=== PATIENT | male | born 1995 | race Caucasian/White ===

== ENCOUNTER 2022-01-31 12:38 | Emergency (ER) | payer MEDICAID, SELFPAY ==
[2022-01-31 12:47] VITALS: BP 138/83; PULSE 100; RESP 18; TEMP 36.1; O2SAT 98; BMI 34.4
--- NOTE | 2022-01-31 13:43 | ED_ITS ---
HPI - Skin/Abscess/Foreign Bdy General Chief complaint: Skin/Abscess/Foreign Body Stated complaint: infection on abd Time Seen by Provider: 01/31/22 13:29 Source: patient Mode of arrival: ambulatory Limitations: no limitations History of Present Illness HPI narrative: 26 yo male here with redness/swelling on the skin of the upper abdomen x several days. No fevers, chills. Related Data Previous Rx's Medication Instructions Recorded doxycycline monohydrate 100 mg 100 mg PO BID #20 cap 01/31/22 capsule Allergies Allergy/AdvReac Type Severity Reaction Status Date / Time No Known Allergies Allergy Unverified 07/14/20 16:40 [No Known Allergies*] Review of Systems Review of Systems: Yes all other systems are reviewed and are negative Constitutional: Constitutional: Reports no additional constitutional complaints, Denies body ache(s), Denies chills, Denies fever(s), Denies headache(s) and Denies weakness Eyes: Eyes: Reports no additional eye complaints and Denies change in vision ENT: Reports system reviewed and no additional complaints, except as documented, Denies dizziness, Denies headache(s), Denies nasal congestion, Denies nasal discharge and Denies neck pain Cardiovascular: Cardiovascular: Reports no additional cardiovascular complaints, Denies chest pain, Denies leg edema and Denies dyspnea Respiratory: Respiratory: Reports no additional respiratory complaints, Denies cough and Denies dyspnea Gastrointestinal: Gastrointestinal: Reports no additional gastrointestinal complaints, Denies abdominal pain, Denies diarrhea, Denies nausea and Denies vomiting Genitourinary: Genitourinary: Denies urinary incontinence Musculoskeletal: Musculoskeletal: Reports no additional musculoskeletal complaints, Denies back pain, Denies arthralgias, Denies joint swelling, Denies neck pain, Denies numbness and Denies tingling Integumentary/Breasts: Skin/Breast: Reports system reviewed and no additional complaints, except as docu, Reports swelling, Reports erythema and Denies rash Neurologic: Reports system reviewed and no additional complaints, except as documented, Denies Abnormal speech present, Denies dizziness, Denies h eadache(s), Denies numbness, Denies tingling and Denies weakness PMFSH Past Medical History Attestation statement: The following information was validated with the patient. Source: old records reviewed and nursing notes reviewed Medical History No known health problems Physical Exam Vital Signs: Vital Signs: Last Vital Signs Temp 97.0 F 01/31/22 12:47 Pulse 100 01/31/22 12:47 Resp 18 01/31/22 12:47 BP 138/83 01/31/22 12:47 Pulse Ox 98 01/31/22 12:47 BMI result Body Mass Index 34.4 Const: General: cooperative, healthy appearing, comfortable and no acute distress Orientation/consciousness: patient oriented x3 Limitations: no limitations HEENT: Head: Yes normal to inspection Ears: hearing grossly normal bilaterally General nose exam: Normal external nose present Face and sinus: Yes normal facial exam Mouth: Normal oral and palatal mucosa present Throat: Yes posterior oropharynx normal Eyes: General: appearance normal, both eyes and all related structures Pupils: Equal, round and reactive pupils present Neck: Neck: Yes normal visual inspection Chest: Chest palpation & inspection: normal inspection of the chest Resp: Effort & Inspection: normal respiratory effort Auscultation: clear to auscultation bilaterally Cardio: Rate: regular rate Rhythm: regular rhythm Peripheral pulses: Peripheral pulses 2+ throughout GI: Inspection: Yes normal to inspection Palpation (GI): Soft to palpation and nontender Auscultation: normal bowel sounds Abdomen image: 1. There is an abscess with drainage with surrounding erythema Back/Spine/Pelvis: Thoracic/Lumbar Spine: thoracic and lumbar spine normal to inspection Skin: General skin exam: no rashes or lesions noted Neuro: General: patient oriented x3, no focal motor deficits and normal sensation to monofilament Cranial nerves: Yes Equal, round and reactive pupils present Cognition (Neuro): normal cognition Speech: No Abnormal speech present Gait exam (Neuro): Normal gait present Motor exam (neuro): 5/5 motor strength present throughout Extrem: General: Yes normal to inspection Course Course Course Narrative: 26-year-old male here with abscess to the abdominal wall. See procedure note. There is a local area of erythema and tenderness with warmth. Patient will be started on oral antibiotics. Reviewed worrisome signs and symptoms of when to return to the emergency department. Comfortable discharge home. MDM - Skin/Abscess/Foreign Bdy Differential Diagnosis Differential diagnosis: Likely abscess of skin or subcutaneous tissue Medical Records Attestation: I reviewed the patient's medical records. Lab Data Attestation: I reviewed the patient's lab results. Procedures Abscess I/D Site: abdomen Local Anesthetic: lidocaine 2% Amount of anesthesia used (mL): 3 Technique: incised with blade Sent for culture/gram staining?: No Irrigation: No Packing used?: iodoform Discharge Plan Discharge Clinical Impression: Abscess of skin or subcutaneous tissue Patient Disposition: Home, Self-Care Instructions: Abscess (ED) Additional Instructions: Return in 48 hours for packing removal Take Motrin or Tylenol for pain as needed Prescriptions: New doxycycline monohydrate 100 mg capsule 100 mg PO BID Qty: 20 0RF Referrals: Physician,None [Primary Care Provider] -
[2022-01-31] MEDS: Lidocaine HCl 2 % MPF 5 ML VIAL SUBCUT (14:01)
== END 2022-01-31 14:30 | disposition home or self-care (01) ==
LOC: HO.ED 14:13
PROVIDERS: Emergency Provider Emergency Medicine Emergency Medical Services
DX: L02.211 Cutaneous abscess of abdominal wall (principal)
CPT/HCPCS: 10060; 99282; 99284

== ENCOUNTER 2022-02-03 12:11 | Emergency (ER) | payer MEDICAID, SELFPAY ==
[2022-02-03 12:18] VITALS: BP 127/81; PULSE 85; RESP 16; TEMP 37.2; O2SAT 100; BMI 36.6
--- NOTE | 2022-02-03 12:23 | ED_ITS ---
HPI - General Adult General Chief complaint: Wound/Laceration Stated complaint: Remove packing from abscess Time Seen by Provider: 02/03/22 12:23 Source: patient Mode of arrival: ambulatory Limitations: no limitations History of Present Illness HPI narrative: Patient is a 26 year old male presenting to the emergency department today for packing removal. Patient states that a few days ago, he had an abscess opened here and had packing placed and was told to come back and have the packing removed. Patient states that he as prescribed antibiotics but he hasn't started taking them yet. Patient denies any dizziness, lightheadedness, abdominal pain, nausea, vomiting, fever, chills, blurry vision, double vision, loss of vision, chest pain, difficulty breathing, shortness of breath, back pain, night sweats, pain with urination, increased urinary frequency, increased urinary urgency, blood in his urine or stool, syncope or a near syncopal episode, recent trauma or falls, bowel incontinence, bladder incontinence, bowel retention, bladder retention, or any other complaints at this time. Location: abdomen Radiation: non-radiation Relieving factors: none Exacerbating factors: none Associated symptoms: denies other symptoms Treatments prior to arrival: none Related Data Previous Rx's Medication Instructions Recorded doxycycline monohydrate 100 mg 100 mg PO BID #20 cap 01/31/22 capsule Allergies Allergy/AdvReac Type Severity Reaction Status Date / Time No Known Allergies Allergy Verified 02/03/22 12:20 [No Known Allergies*] Review of Systems Constitutional: Constitutional: Reports no additional constitutional complaints, Denies chills, Denies fever(s) and Denies night sweats Eyes: Eyes: Reports no additional eye complaints, Denies blurry vision, Denies change in vision, Denies diplopia, Denies eye discharge, Denies loss of vision and Denies eye pain ENT: Denies dizziness Cardiovascular: Cardiovascular: Reports no additional cardiovascular complaints, Denies chest pain, Denies lightheadedness, Denies Loss of Consciousness and Denies dyspnea Respiratory: Respiratory: Reports no additional respiratory complaints and Denies dyspnea Gastrointestinal: Gastrointestinal: Reports no additional gastrointestinal complaints, Denies abdominal pain, Denies melena, Denies hematochezia, Denies change in bowel habits and Denies change in stool character Comments: packing placed superior to the belly button Genitourinary: Genitourinary: Reports no additional male genitourinary complai nts, Denies hematuria, Denies oliguria, Denies difficulty urinating, Denies dysuria, Denies urinary frequency, Denies urinary hesitancy, Denies urinary incontinence and Denies urinary urgency Musculoskeletal: Musculoskeletal: Reports no additional musculoskeletal complaints, Denies numbness and Denies tingling Neurologic: Denies dizziness, Denies loss of vision, Denies numbness and Denies tingling Psychiatric: Psychiatric: Reports no additional psychiatric complaints Endocrine: Endocrine: Reports no additional endocrine complaints Hematologic/Lymphatic: Hematologic/Lymphatic: Reports no additional hematologic/lymphatic complaints Allergic/Immunologic: Allergic/Immunologic: Reports no additional allergic/immunologic complaints PMFSH Past Medical History Attestation statement: The following information was validated with the patient. Source: old records reviewed Medical History No known health problems Social History Social History Advance Directives: No Advance Directives Information Provided: No Physical Exam ED Vital Signs: Vital Signs - 24 hr 02/03/22 12:18 Temperature 98.9 F Pulse Rate 85 Respiratory Rate 16 Blood Pressure 127/81 Pulse Oximetry 100 BMI result Body Mass Index 36.6 Const General: cooperative, no acute distress, alert and awake Nutritional Appearance: well nourished Orientation/consciousness: patient oriented x3 Limitations: no limitations HENMT Head: Yes normal to inspection and Yes atraumatic Ears: hearing grossly normal bilaterally and external ears normal General nose exam: Normal external nose present, no nasal discharge noted and no epistaxis Face and sinus: Yes normal facial exam, No abrasion and No laceration Mouth: Normal oral and palatal mucosa present, no drooling and no muffled voice Eyes General: appearance normal, both eyes and all related structures Periorbital: periorbital findings normal Eyelids: Yes eyelids normal Conjunctivae: conjunctivae normal Pupils: Equal, round and reactive pupils present EOM: EOMs intact bilaterally Neck Neck: Yes normal visual inspection, Yes full ROM and Yes no lymphadenopathy Chest Chest palpation & inspection: normal inspection of the chest Resp Effort & Inspection: normal respiratory effort and able to speak in complete sentences Auscultation: clear to auscultation bilaterally Cardio Rate: regular rate Rhythm: regular rhythm GI Inspection: Yes normal to inspection Skin Other: packing placed in a small open wound just superior to the umbilicus Neuro General: patient oriented x3 and moves all extremities Cranial nerves: Yes Equal, round and reactive pupils present Cognition (Neuro): normal cognition Motor exam (neuro): 5/5 motor strength present throughout Sensory Exam: Normal double simultaneous stimulation for sensation Coordination: [id number]-[id number]-[id number] test normal Extrem General: Yes normal to inspection, Yes full ROM and Yes capillary refill normal Psych Appearance: grossly normal Mental Status: mental status grossly normal Affect: normal affect Attitude: cooperative Thought process: Normal thought process present Thought content: Normal thought content present Insight: Good insight present (Psych) Procedures Procedure Narrative Procedure Narrative: Packing removed from incised area just superior of the umbilicus. Removal went without incident. Medical Decision Making MDM Narrative Medical decision making narrative: Patient is a 26 year old male presenting to the emergency department today for packing removal. Patient's physical exam showed a small open wound superior of the umbilicus with packing present. I removed the packing, without incident. Patient's wound was redressed. I explained my physical exam findings to the patient. I answered all questions asked by the patient. I stressed the importance of the patient taking his medication and his antibiotic as prescribed. I stressed the importance of the patient following up with his primary care provider. I stressed the importance of the patient returning to the emergency department immediately if he were to develop any dizziness, shortness of breath, difficulty breathing, chest pain, blurry vision, loss of vision, nausea, vomiting, abdominal pain, fever, chills, back pain, or any other complaints. Patient verbalized agreement and understanding with this treatment p bijal and discharge. Differential Diagnosis Differential Diagnosis: packing removal Medical Records Medical records reviewed: Yes I reviewed the patient's medical records. Discharge Plan Discharge Clinical Impression: Abscess Patient Disposition: Home, Self-Care Instructions: Abscess (ED), Abscess Incision and Drainage (DC) Additional Instructions: Take your antibiotics as prescribed. Perform daily wound checks and daily dressing changes. Follow up with your primary care provider. Return to the emergency department immediately if your symptoms worsen or if you develop any dizziness, shortness of breath, difficulty breathing, chest pain, blurry vision, loss of vision, nausea, vomiting, abdominal pain, fever, chills, back pain, or any other complaints. Prescriptions: No Action doxycycline monohydrate 100 mg capsule 100 mg PO BID Qty: 20 0RF Referrals: Physician,None [Primary Care Provider] - (Follow up with your PCP. ) Interventions: ED Discharge Assessment Last Done: 02/03/22 12:45 Discharge Date/Time: 02/03/22 12:46 Print Language: Azeri
== END 2022-02-03 12:46 | disposition home or self-care (01) ==
PROVIDERS: Emergency Provider Emergency Medicine
DX: Z48.00 Encounter for change or removal of nonsurgical wound dressing (principal); L02.211 Cutaneous abscess of abdominal wall
CPT/HCPCS: 99282; 99283

== ENCOUNTER 2022-11-28 11:19 | Emergency (ER) | payer MEDICAID, SELFPAY ==
--- NOTE | ~2022-11-28 | XR_ITS ---
EXAMINATION: RIGHT ANKLE, RIGHT FOOT CLINICAL INFORMATION: Rolled ankle with foot and ankle pain COMPARISON: None TECHNIQUE: 2 views right ankle, 3 views right foot FINDINGS: There is minimal soft tissue swelling. No bone or joint abnormality is seen. No fractures are detected. XR/XR ankle RT 2V IMPRESSION: No evidence of an acute osseous injury.
--- NOTE | ~2022-11-28 | XR_ITS ---
EXAMINATION: RIGHT ANKLE, RIGHT FOOT CLINICAL INFORMATION: Rolled ankle with foot and ankle pain COMPARISON: None TECHNIQUE: 2 views right ankle, 3 views right foot FINDINGS: There is minimal soft tissue swelling. No bone or joint abnormality is seen. No fractures are detected. XR/XR foot RT 2V IMPRESSION: No evidence of an acute osseous injury.
--- NOTE | 2022-11-28 11:22 | ED_ITS ---
HPI - Extremity Injury (Lower) General Chief Complaint: Fall <Patt Pereira NP - Last Filed: 11/28/22 11:24> Stated Complaint: R ankle sprain <Patt Pereira NP - Last Filed: 11/28/22 11:24> Time Seen by Provider: 11/28/22 11:41 <Patt Pereira NP - Last Filed: 11/28/22 11:24> Source: patient <MINOR Vu - Last Filed: 11/28/22 14:18> Mode of arrival: ambulatory <MINOR Vu - Last Filed: 11/28/22 14:18> Limitations: no limitations <MINOR Vu Last Filed: 11/28/22 14:18> History of Present Illness HPI Narrative: 27 year old male presents to the ED using crutches. The patient reports yesterday while walking to the kitchen twisted his right ankle. He reports swelling and pain with ambulation, palpation, and pressure. Denies head trauma or any other trauma. No numbness, tingling. No bleeding. He reports no other symptoms. <MINOR Vu - Last Filed: 11/28/22 14:18> MD complaint: ankle injury (right side ) <MINOR Vu Last Filed: 11/28/22 14:18> Onset (ago): hour(s) <MINOR Vu - Last Filed: 11/28/22 14:18> Injury: Right: foot (Ankle/Foot pain right side after fall ) <MINOR Vu Last Filed: 11/28/22 14:18> Type of Injury: eversion <MINOR Vu - Last Filed: 11/28/22 14:18> Place: home (walking to the kitchen ) <MINOR Vu Last Filed: 11/28/22 14:18> Relieving factors: immobilization <MINOR Vu Last Filed: 11/28/22 14:18> Exacerbating factors: weight bearing and movement <MINOR Vu Last Filed: 11/28/22 14:18> Context: fall and walking <MINOR Vu Last Filed: 11/28/22 14:18> Associated symptoms: swelling <MINOR Vu - Last Filed: 11/28/22 14:18> Related Data Home Medications: Previous Rx's Medication Instructions Recorded doxycycline monohydrate 100 mg 100 mg PO BID #20 caps 01/31/22 capsule ibuprofen 800 mg tablet 800 mg PO Q8H PRN pain #14 tabs 11/28/22 <Patt Pereira NP - Last Filed: 11/28/22 11:24> Allergies/Adverse Reactions: Allergies Allergy/AdvReac Type Severity Reaction Status Date / Time No Known Allergies Allergy Verified 02/03/22 12:20 [No Known Allergies*] <Patt Pereira NP - Last Filed: 11/28/22 11:24> Review of Systems Review of Systems: Constitutional : No Weight loss, No Fever, No Chills, No Night Sweats, No Fatigue, No Malaise ENT/Mouth : No Hearing loss, No Ear Pain, No Nasal Congestion, No Sinus Pain, No Hoarseness, No sore throat, No Rhinorrhea, No Swallowing Difficulty Eyes: No Eye Pain, No Swelling, No Redness, No Foreign Body, No Discharge, No Vision Changes Cardiovascular : No Chest Pain, No SOB, No Dyspnea on Exertion, No Orthopnea, No Edema, No Palpitations Respiratory : No Cough, No Sputum, No Wheezing, No Smoke Exposure, No Dyspnea Gastrointestinal : No Nausea, No Vomiting, No Diarrhea, No Constipation, No abdominal Pain, No Hematochezia, No Melena Genitourinary : no irregular bleeding, No Dysuria, No Urinary Frequency, No He maturia, No Urinary Incontinence, No Urgency, No Flank Pain, No Urinary Flow Changes, No Hesitancy Musculoskeletal : + r ankle joint pain, Swelling Skin : Right ankle ecchymosis,No Skin Lesions, No rash Neuro : No Weakness, No Numbness, No Paresthesias, No Loss of Consciousness, No Dizziness, No Headache Psych : No Anxiety/Panic, No Depression, No SI/HI/AH/VH, No Social Issues, Heme/Lymph: No Bruising, No Bleeding,No Lymphadenopathy Endocrine : No Polyuria, No Polydipsia, No Temperature Intolerance <MINOR Vu Last Filed: 11/28/22 14:18> Yes all other systems are reviewed and are negative <MINOR Vu - Last Filed: 11/28/22 14:18> [facility] Past Medical History Attestation statement: The following information was validated with the patient. <MINOR Vu - Last Filed: 11/28/22 14:18> Source: old records reviewed, obtained from family and nursing notes reviewed <MINOR Vu - Last Filed: 11/28/22 14:18> Medical History: Medical History No known health problems <Patt Pereira NP - Last Filed: 11/28/22 11:24> Social History Social History: Social History Advance Directives: No Advance Directives Information Provided: No <Patt Pereira NP - Last Filed: 11/28/22 11:24> Physical Exam Vital Signs: Vital Signs: Last Vital Signs Temp 97.9 F 11/28/22 11:24 Pulse 92 11/28/22 11:24 Resp 20 11/28/22 11:24 BP 128/82 11/28/22 11:24 Pulse Ox 98 11/28/22 11:24 O2 Del Method 11/28/22 11:24 BMI result Body Mass Index 37.8 <Patt Pereira NP - Last Filed: 11/28/22 11:24> Vital Signs: Last Vital Signs Temp 97.9 F 11/28/22 11:24 Pulse 92 11/28/22 11:24 Resp 20 11/28/22 11:24 BP 128/82 11/28/22 11:24 Pulse Ox 98 11/28/22 11:24 O2 Del Method 11/28/22 11:24 BMI result Body Mass Index 37.8 Vital signs reviewed. Blood pressure normal. Pulse normal. Respiration normal. Oxygen normal. Temperature normal. <MINOR Vu - Last Filed: 11/28/22 14:18> Appearance: Alert. Oriented X3. No acute distress. Head: Normal external exam. Normocephalic. Atraumatic. Eyes: PERRLA. EOMI. Conjunctiva and sclera normal. Eyelids normal. ENT: EAC normal. TM's Normal. Pharynx normal. Uvula midline. Moist mucous membranes. No lesions/ulcerations or masses noted on the tongue. Normal voice. No trismus noted. No drooling noted. No muffled voice noted. Neck: Normal inspection. Neck supple. FROM. No adenopathy. Thyroid Normal. No meningeal signs. CVS: Normal heart rate and rhythm. Heart sound normal. Pulses normal throughout. No murmurs/rales/gallops. Respiratory: No respiratory distress. Painless inspiration. Breath sounds normal. No wheezes/rales/rhonchi noted. Chest nontender. No accessory muscle usage noted or decreased air movement noted. Abdomen: Soft and nontender. Back: Full range of motion noted. Nontender. Skin: Ecchymosis and swelling of the lateral aspect of right ankle. Skin warm and dry. Normal skin color. Normal skin turgor. No rashes/lesions/lacerations noted. Extremities: Limited ROM plantar flexion/dorsiflexion right foot due to pain. Difficult bearing weight on right foot due to pain. No obvious ligamentous or tendon injury noted. Achilles tendon is intact. Negative Leahy test. Otherwise all Extremities exhibit normal range of motion and nontender. Neuro: Oriented X 3. No motor deficit. No sensory deficit. Reflexes normal. Normal steady gait. No focal neuro deficits noted. CN's II-XII intact bilaterally? Vascular: + radial pulses. Normal distal pedal pulses. Normal cap refill. No cyanosis noted to upper extremity nails and toenails <MINOR Vu - Last Filed: 11/28/22 14:18> Course Course Course Narrative: This is rapid medical exam. Deferred additional HPI, ROS, PE to primary provider. 27 yo male here with complaints of right ankle/foot pain s/p twisting injury yesterday. Will check x-rays. VSS. <Patt Pereira NP - Last Filed: 11/28/22 11:24> Reevaluation(s) Reevaluation #1: 27 year old with no prior medical history and no allergies presents to the ED using crutches complaining of right foot ankle sprain. Ankle pain, swelling and ecchymosis around the malleolus. Difficultly bearing weight on right foot. No obvious tendon or muscle rupture. X-ray results show minimal soft tissue swelling. No bone or joint abnormality detected, no evidence of fractures, or acute osseous injury. Recommending joint stabilization with air cast, NSAIDs, rest, elevation and ice. Follow up in 1 week with orthopedics. <MINOR Vu - Last Filed: 11/28/22 14:18> Time: 11:49 <MINOR Vu - Last Filed: 11/28/22 14:18> Medical Decision Making Independent Interpretation I performed an independent interpretation of an: Plain X-Ray <MINOR Vu - Last Filed: 11/28/22 14:18> Interpretation: EXAMINATION: RIGHT ANKLE, RIGHT FOOT CLINICAL INFORMATION: Rolled ankle with foot and ankle pain? COMPARISON: None? TECHNIQUE: 2 views right ankle, 3 views right foot? FINDINGS: There is minimal soft tissue swelling. No bone or joint abnormality is seen. No fractures are detected.? XR/XR foot RT 2V IMPRESSION: No evidence of an acute osseous injury. <MINOR Vu - Last Filed: 11/28/22 14:18> Radiology Impression Discussion of test interpretation with radiology: I have reviewed the radiologist's reading. <MINOR Vu - Last Filed: 11/28/22 14:18> Procedures Orthopedic Splinting/Casting Injury #1: Side: right <MINOR Vu - Last Filed: 11/28/22 14:18> Lower Extremity Injury Location: ankle and foot <MINOR Vu - Last Filed: 11/28/22 14:18> Lower Extremity Immobilizer: AirCast <MINOR Vu - Last Filed: 11/28/22 14:18> Discharge Plan Discharge Clinical Impression: Right ankle sprain <Patt Pereira NP - Last Filed: 11/28/22 11:24> Patient Disposition: Home, Self-Care <Patt Pereira NP - Last Filed: 11/28/22 11:24> Instructions: Ankle Sprain (ED) <Patt Pereira NP - Last Filed: 11/28/22 11:24> Prescriptions: New ibuprofen 800 mg tablet 800 mg PO Q8H PRN (Reason: pain) Qty: 14 0RF No Action doxycycline monohydrate 100 mg capsule 100 mg PO BID Qty: 20 0RF <Patt Pereira NP - Last Filed: 11/28/22 11:24> Referrals: [facility] [place] [facility] [Provider Group] (if symptoms persist for longer than a few weeks follow-up with orthopedics) <Patt Pereira NP - Last Filed: 11/28/22 11:24> Stand Alone Forms: Work/School Release <Patt Pereira NP - Last Filed: 11/28/22 11:24> Discharge Date/Time: 11/28/22 12:47 <Patt Pereira NP - Last Filed: 11/28/22 11:24>
[2022-11-28 11:24] VITALS: BP 128/82; PULSE 92; RESP 20; TEMP 36.6; O2SAT 98; BMI 37.8
--- NOTE | 2022-11-28 12:45 | PC.NURSE ---
air cast placed on right ankle, pt tolerated well with ibu 800mg on board. pt able to demonstrate proper use of crutches, alert, oriented, NAD at dc
== END 2022-11-28 12:47 | disposition home or self-care (01) ==
PROVIDERS: Emergency Provider Student in an Organized Health Care Education/Training Program
DX: S93.401A Sprain of unspecified ligament of right ankle, initial encounter (principal); M25.571 Pain in right ankle and joints of right foot; X50.1XXA Overexertion from prolonged static or awkward postures, initial encounter; Y93.9 Activity, unspecified; Y92.9 Unspecified place or not applicable; Y99.9 Unspecified external cause status
CPT/HCPCS: 29515; 73600; 73620; 99283

== ENCOUNTER 2023-01-25 17:20 | Emergency (ER) | payer MEDICAID, SELFPAY ==
--- NOTE | ~2023-01-25 | XR_ITS ---
EXAMINATION: XR ANKLE, RIGHT CLINICAL INFORMATION: Right ankle injury COMPARISON: 11/28/2022 TECHNIQUE: AP, lateral, and mortise views of the right ankle. FINDINGS: The bones and soft tissues are normal. No fracture. Alignment is anatomic. Joint spaces are maintained. No joint effusion. XR/XR ankle RT min 3V IMPRESSION: Normal right ankle.
--- NOTE | 2023-01-25 17:31 | ED.GENADULT ---
HPI - General Adult General Chief complaint: Extremity Injury, Lower <MINOR Taylor - Last Filed: 01/28/23 08:24> Stated complaint: R ankle inj <MINOR Taylor - Last Filed: 01/28/23 08:24> Time Seen by Provider: 01/25/23 18:00 <MINOR Taylor - Last Filed: 01/28/23 08:24> Source: patient <Patt Pereira NP - Last Filed: 01/26/23 09:12> Mode of arrival: wheelchair <Patt Pereira NP - Last Filed: 01/26/23 09:12> Limitations: no limitations <ASHELY Sorto Last Filed: 01/26/23 09:12> History of Present Illness HPI narrative: 27-year-old male here with right ankle pain after an inversion injury which occurred while playing basketball today. Patient denies any foot pain, posterior calf or ankle pain, numbness, weakness, tingling of the extremity. Patient arrives in a wheelchair as he has pain with weight-bearing <Patt Pereira NP - Last Filed: 01/26/23 09:12> Related Data Home medications: Previous Rx's Medication Instructions Recorded doxycycline monohydrate 100 mg 100 mg PO BID #20 caps 01/31/22 capsule ibuprofen 800 mg tablet 800 mg PO Q8H PRN pain #14 tabs 11/28/22 <MINOR Taylor - Last Filed: 01/28/23 08:24> Allergies/adverse reactions: Allergies Allergy/AdvReac Type Severity Reaction Status Date / Time No Known Allergies Allergy Verified 02/03/22 12:20 [No Known Allergies*] <MINOR Taylor Last Filed: 01/28/23 08:24> Review of Systems Review of Systems: Yes all other systems are reviewed and are negative <ASHELY Sorto Last Filed: 01/26/23 09:12> Constitutional: Constitutional: Reports no additional constitutional complaints, Denies body ache(s), Denies chills, Denies fever(s), Denies headache(s) and Denies weakness <ASHELY Sorto Last Filed: 01/26/23 09:12> Eyes: Eyes: Reports no additional eye complaints and Denies change in vision <Patt Pereira [employer] - Last Filed: 01/26/23 09:12> ENT: Reports system reviewed and no additional complaints, except as documented, Denies dizziness, Denies headache(s), Denies nasal congestion, Denies nasal discharge and Denies neck pain <Patt Pereira [employer] - Last Filed: 01/26/23 09:12> Cardiovascular: Cardiovascular: Reports no additional cardiovascular complaints, Denies chest pain, Denies leg edema and Denies dyspnea <Patt Pereira [employer] - Last Filed: 01/26/23 09:12> Respiratory: Respiratory: Reports no additional respiratory complaints, Denies cough and Denies dyspnea <Patt Pereira [employer] - Last Filed: 01/26/23 09:12> Gastrointestinal: Gastrointestinal: Reports no additional gastrointestinal complaints, Denies abdominal pain, Denies diarrhea, Denies nausea and Denies vomiting <Patt Pereira [employer] - Last Filed: 01/26/23 09:12> Genitourinary: Genitourinary: Denies urinary incontinence <Patt Pereira [employer] - Last Filed: 01/26/23 09:12> Musculoskeletal: Musculoskeletal: Reports no additional musculoskeletal complaints, Denies back pain, Reports arthralgias, Reports joint swelling, Denies neck pain, Denies numbness and Denies tingling <Patt Pereira [employer] - Last Filed: 01/26/23 09:12> Integumentary/Breasts: Skin/Breast: Reports system reviewed and no additional complaints, except as docu and Denies rash <Patt Pereira [employer] - Last Filed: 01/26/23 09:12> Neurologic: Reports system reviewed and no additional complaints, except as documented, Denies dizziness, Denies headache(s), Denies numbness, Denies tingling and Denies weakness <Patt Pereira [employer] - Last Filed: 01/26/23 09:12> PMFSH Past Medical History Attestation statement: The following information was validated with the patient. <Patt Pereira [employer] - Last Filed: 01/26/23 09:12> Source: old records reviewed and nursing notes reviewed <Patt Pereira NP - Last Filed: 01/26/23 09:12> Medical History: Medical History No known health problems <MINOR Taylor - Last Filed: 01/28/23 08:24> Social History Social History: Social History Advance Directives: No Advance Directives Information Provided: No <MINOR Taylor - Last Filed: 01/28/23 08:24> Physical Exam ED Vital Signs: Vital Signs - 24 hr 01/25/23 17:32 Temperature 96.5 F L Pulse Rate 106 H Respiratory Rate 20 Blood Pressure 119/78 Pulse Oximetry 97 Oxygen Delivery Method Room Air BMI result Body Mass Index 38.2 <MINOR Taylor - Last Filed: 01/28/23 08:24> Vital Signs - 24 hr 01/25/23 17:32 Temperature 96.5 F L Pulse Rate 106 H Respiratory Rate 20 Blood Pressure 119/78 Pulse Oximetry 97 Oxygen Delivery Method Room Air BMI result Body Mass Index 38.2 <Patt Pereira NP - Last Filed: 01/26/23 09:12> Const General: cooperative, healthy appearing and comfortable <Patt Pereira NP - Last Filed: 01/26/23 09:12> Orientation/consciousness: patient oriented x3 <Patt Pereira NP - Last Filed: 01/26/23 09:12> Limitations: no limitations <Patt Pereira NP - Last Filed: 01/26/23 09:12> HENMT Head: Yes normal to inspection <Patt Pereira NP - Last Filed: 01/26/23 09:12> Ears: hearing grossly normal bilaterally <Patt Pereira NP - Last Filed: 01/26/23 09:12> Eyes General: appearance normal, both eyes and all related structures <Patt Pereira NP - Last Filed: 01/26/23 09:12> Pupils: Equal, round and reactive pupils present <Pattgato Pereira [employer] - Last Filed: 01/26/23 09:12> Neck Neck: Yes normal visual inspection and Yes full ROM <Pattgato Pereira [employer] - Last Filed: 01/26/23 09:12> Chest Chest palpation & inspection: normal inspection of the chest <Patt Pereira [employer] - Last Filed: 01/26/23 09:12> Resp Effort & Inspection: normal respiratory effort <Patt Pereira [employer] - Last Filed: 01/26/23 09:12> Cardio Rate: regular rate <Pattgato Pereira [employer] - Last Filed: 01/26/23 09:12> Rhythm: regular rhythm <Patt Pereira [employer] - Last Filed: 01/26/23 09:12> Peripheral pulses: Peripheral pulses 2+ throughout <Pattgato Pereira [employer] - Last Filed: 01/26/23 09:12> GI Inspection: Yes normal to inspection <Pattgato Pereira [employer] - Last Filed: 01/26/23 09:12> Back/Spine/Pelvis Thoracic/Lumbar Spine: thoracic and lumbar spine normal to inspection <Pattgato Pereira [employer] - Last Filed: 01/26/23 09:12> Skin General skin exam: no rashes or lesions noted <Pattgato Pereira [employer] - Last Filed: 01/26/23 09:12> Neuro General: patient oriented x3 and moves all extremities <Patt Pereira [employer] - Last Filed: 01/26/23 09:12> Cranial nerves: Yes Equal, round and reactive pupils present <Pattgato Pereira [employer] - Last Filed: 01/26/23 09:12> Cognition (Neuro): normal cognition <Patt Pereira [employer] - Last Filed: 01/26/23 09:12> Gait exam (Neuro): Normal gait present <Patt Pereira [employer] - Last Filed: 01/26/23 09:12> Extrem Other: There is tenderness and swelling over the right lateral ankle. No tenderness over the foot, no tenderness over the posterior ankle, negative Leahy test, normal DP and PT pulses, full range of motion of ankle and foot, sensation is intact distally <Patt Pereira NP - Last Filed: 01/26/23 09:12> Course Course Course Narrative: RME performed by Miranda Cartagena PA-C. Patient is a 27 year old assigned male at presenting to the emergency department with right ankle pain. Imaging ordered. Patient placed back in the waiting room pending room availability and results. <MINOR Taylor Last Filed: 01/28/23 08:24> Reevaluation(s) Reevaluation #1: X-ray shows no fracture. Likely sprain. Patient will be given Cleve wrap and crutches, reviewed rice. Reviewed worrisome signs and symptoms of when to return to the emergency room. Comfortable plan for discharge home. <ASHELY Sorto Last Filed: 01/26/23 09:12> Medical Decision Making Medical Decision Making MDM Narrative: 27-year-old male here with right ankle pain after an inversion injury which occurred just prior to arrival. Patient has pain on weight-bearing Will check x-ray <Patt Pereira NP - Last Filed: 01/26/23 09:12> Differential Diagnosis Differential Diagnoses: The differential diagnosis associated with the presentation includes <ASHELY Sorto Last Filed: 01/26/23 09:12> Fracture, sprain <Patt Pereira NP - Last Filed: 01/26/23 09:12> Independent Interpretation I performed an independent interpretation of an: Plain X-Ray <Patt Pereira NP - Last Filed: 01/26/23 09:12> Interpretation: I independently reviewed the x-ray and agree with radiologist's report <ASHELY Sorto Last Filed: 01/26/23 09:12> Radiology Impression Discussion of test interpretation with radiology: I have reviewed the radiologist's reading. <ASHELY Sorto Last Filed: 01/26/23 09:12> Radiologist Impression: [address] [address] XRay Report Signed Patient: Geovanna Martinez MR#: [id number] : 1995 Acct:[id number] Age/Sex: 27 / M ADM Date: 01/25/23 Loc: HO.ED Attending Dr: Ordering Physician: Miranda Cartagena Date of Service: 01/25/23 Procedure(s): XR ankle RT min 3V Accession Number(s): [id number] cc: Miranda Cartagena~ EXAMINATION: XR ANKLE, RIGHT CLINICAL INFORMATION: Right ankle injury? COMPARISON: 11/28/2022? TECHNIQUE: AP, lateral, and mortise views of the right ankle. FINDINGS: The bones and soft tissues are normal. No fracture. Alignment is anatomic. Joint spaces are maintained. No joint effusion.? XR/XR ankle RT min 3V IMPRESSION: Normal right ankle. <Patt Pereira NP - Last Filed: 01/26/23 09:12> Discharge Plan Discharge Clinical Impression: Ankle sprain and strain <MINOR Taylor - Last Filed: 01/28/23 08:24> Patient Disposition: Home, Self-Care <MINOR Taylor - Last Filed: 01/28/23 08:24> Instructions: Ankle Sprain (DC) <MINOR Taylor - Last Filed: 01/28/23 08:24> Additional Instructions: Your x-ray show no fracture. You have a sprain of your ankle Use the Cleve wrap and crutches for the next few days. Perform gentle range of motion Ice, elevation Motrin or Tylenol for pain as needed <MINOR Taylor - Last Filed: 01/28/23 08:24> Prescriptions: No Action doxycycline monohydrate 100 mg capsule 100 mg PO BID Qty: 20 0RF ibuprofen 800 mg tablet 800 mg PO Q8H PRN (Reason: pain) Qty: 14 0RF <MINOR Taylor - Last Filed: 01/28/23 08:24> Referrals: Physician,None [Primary Care Provider] - 1 week <MINOR Taylor - Last Filed: 01/28/23 08:24> Interventions: ED Discharge Assessment Last Done: 01/25/23 18:20 <MINOR Taylor - Last Filed: 01/28/23 08:24> Discharge Date/Time: 01/25/23 18:21 <MINOR Taylor - Last Filed: 01/28/23 08:24>
[2023-01-25 17:32] VITALS: BP 119/78; PULSE 106; RESP 20; TEMP 35.8; O2SAT 97; BMI 38.2
== END 2023-01-25 18:21 | disposition home or self-care (01) ==
LOC: HO.ED 18:17
PROVIDERS: Emergency Provider Emergency Medicine
DX: S93.401A Sprain of unspecified ligament of right ankle, initial encounter (principal); S96.911A Strain of unspecified muscle and tendon at ankle and foot level, right foot, initial encounter; X50.1XXA Overexertion from prolonged static or awkward postures, initial encounter; Y93.67 Activity, basketball; Y92.310 Basketball court as the place of occurrence of the external cause; Y99.9 Unspecified external cause status
CPT/HCPCS: 73610; 99282; 99283